=== PATIENT | female | born 1990 | race Caucasian/White ===

== ENCOUNTER 2019-05-29 08:02 | Emergency (ER) | payer SELFPAY ==
--- NOTE | 2019-05-29 08:04 | NUR ---
PT WAS BROUGHT IN BY EMS ; PICKED UP FROM [facility] IN [place] -=-PT ORIENTED NAME PLACE TIME ADMITS TOOK XANAX; REFUSED TO BE SEEN--AMBULATED OUT OF ER WITH STEADY GAIT
--- NOTE | 2019-05-29 08:05 | NUR ---
135/86, HR 70 RR 16 SPO2 100%RA TEMP 97.5 BLOOD SUGAR 75
== END 2019-05-29 08:04 | disposition left against medical advice (07) ==
LOC: MED 08:02
DX: R10.9 Unspecified abdominal pain (principal); Z53.21 Procedure and treatment not carried out due to patient leaving prior to being seen by health care provider